=== PATIENT | male | born 1990 | race Caucasian/White ===

== ENCOUNTER → 2017-12-20 | Outpatient (CLI) | payer SELFPAY | LOC: LAB.O 15:22 | PROVIDERS: ATTEND Family Medicine | DX: Z79.01 Long term (current) use of anticoagulants (principal) ==

== ENCOUNTER → 2017-12-28 | Outpatient (CLI) | payer SELFPAY | LOC: LAB.O 15:16 | PROVIDERS: ATTEND Family Medicine | DX: Z79.01 Long term (current) use of anticoagulants (principal) ==

== ENCOUNTER 2018-01-16 16:24 | Emergency (ER) | payer SELFPAY ==
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
[2018-01-16 17:40] VITALS: BP 114/71; O2SAT 97
== END 2018-01-16 17:07 | disposition home or self-care (01) ==
LOC: ER 16:24
DX: T86.828 Other complications of skin graft (allograft) (autograft) (principal)

== ENCOUNTER 2018-01-22 15:18 | Emergency (ER) | payer SELFPAY ==
[2018-01-22 15:33] VITALS: TEMP 98.1; O2SAT 100
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
[2018-01-22] MEDS ORDERED: MORPHINE SULFATE INJ 10 MG/ML VIAL IM ONE (15:53)
[2018-01-22] MEDS ORDERED: PROMETHAZINE HCL INJ 25 MG/ML VIAL IM ONE (15:55)
[2018-01-22 16:21] VITALS: BP 128/73
== END 2018-01-22 16:26 | disposition home or self-care (01) ==
LOC: ER 15:18
DX: S41.112A Laceration without foreign body of left upper arm, initial encounter (principal); Z94.5 Skin transplant status; W19.XXXA Unspecified fall, initial encounter
CPT/HCPCS: J2270; J2550

== ENCOUNTER 2018-04-02 14:07 | Emergency (ER) | payer SELFPAY ==
[2018-04-02 14:22] VITALS: BP 130/80; TEMP 99.3; O2SAT 99
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
[2018-04-02] MEDS ORDERED: HYDROcodone 7.5MG/APAP 325MG 1 EA TAB PO ONE (14:26)
[2018-04-02] MEDS ORDERED: KETOROLAC TROMETHAMINE INJ 30 MG/ML VIAL IM ONE (14:26)
[2018-04-02] MEDS ORDERED: ORPHENADRINE CITRATE 30 MG/ML AMP IM ONE (14:26)
--- NOTE | 2018-04-02 14:56 | RAD ---
Pelvis and right hip total three view on 04/02/2018 Clinical dictation: Pain, status post ORIF in the right pelvis COMPARISON: None FINDINGS: Coil embolization is noted in the right pelvis. There are three screws in the right pelvis traversing old healed fractures of the right acetabulum and right superior pubic ramus. There is an old fracture of the right inferior pubic ramus. The hips are well located. The SI joints are well aligned. No acute fracture is noted. IMPRESSION: Postsurgical changes in the right pelvis with no acute abnormality. Electronically signed by: Jovani Alston 04/02/2018 2:55 PM CDT
== END 2018-04-02 15:14 | disposition home or self-care (01) ==
LOC: ER 14:07
DX: G89.29 Other chronic pain (principal); M25.551 Pain in right hip; R10.2 Pelvic and perineal pain; Z87.891 Personal history of nicotine dependence
CPT/HCPCS: 72170; 73502; J1885; J2360

== ENCOUNTER → 2019-01-11 | Outpatient (CLI) | payer BC | LOC: YCFC.O 16:28 | PROVIDERS: ATTEND Nurse Practitioner Family | DX: Z02.83 Encounter for blood-alcohol and blood-drug test (principal) ==

== ENCOUNTER → 2019-02-07 | Outpatient (CLI) | payer BC | LOC: YCFC.O 11:17 | PROVIDERS: ATTEND Nurse Practitioner Family | DX: Z02.83 Encounter for blood-alcohol and blood-drug test (principal) ==

== ENCOUNTER 2019-03-22 21:20 | Emergency (ER) | payer SELFPAY ==
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
[2019-03-22 21:57] VITALS: TEMP 98.5; O2SAT 99
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
[2019-03-22 23:09] VITALS: BP 121/72
== END 2019-03-22 23:09 | disposition home or self-care (01) ==
LOC: ER 21:20
DX: S30.1XXA Contusion of abdominal wall, initial encounter (principal); Z87.891 Personal history of nicotine dependence; W27.8XXA Contact with other nonpowered hand tool, initial encounter; Y92.9 Unspecified place or not applicable

== ENCOUNTER → 2019-05-11 | Outpatient (CLI) | payer SELFPAY | LOC: YCFC.O 13:20 | PROVIDERS: ATTEND Nurse Practitioner Family | DX: Z02.83 Encounter for blood-alcohol and blood-drug test (principal) ==